=== PATIENT | male | born 1975 | race Caucasian/White ===

== ENCOUNTER 2025-02-22 07:01 | Day surgery (SDC) | payer BC, SELFPAY ==
[2025-02-18 15:23] VITALS: BMI 29.0
--- OUTSIDE RECORDS SUMMARY | 2025-02-21 19:22 | XMS_ITS | Patient Health Record ---
[facility] [place] Address [address] [place] [address] Care Team Providers Care Higher Education Administrator Name Role Phone Jae Cuba MD Primary Care Provider UnaLuther Méndez Unavailable [phone] Allergies Allergen (clinical drug ingredient) Drug/Non Drug Allergy documented on EMR Reaction Allergy Type Onset Date Status Seasonale sinus Drug Allergy Active Reason For Referral No Information Medications Medication SIG (Take, Route, Fr equency, Duration) Notes Start Date End Date Status Simvastatin 20 MG 1 tablet in the even ing Orally Once a day; Duration: 30 day(s) Active Immunizations Vaccine Route Administration Date Status Comme nts Influenza Unknown 03/09/2021 Administered COVID-19 Pfizer BioNTech Vaccine Unknown 05/16/2021 Administered 1st 10/07/2020 2nd 10/28/2020 Social History Tobacco Use: Social History Observation Description Date Details (start date - stop date) Never Smoker NA - NA Tobacco Use/Smoking Question Answer Notes Are you a: nonsmoker Additional Findings: Tobacco Non-User Current no n-smoker Alcohol Screen Question Answer Notes Did you have a drink contain ing alcohol in the past year? Yes How often did you have a dri nk containing alcohol in the past year? 4 or more times a week (4 points) Points 4 Interpretation Positive Tobacco use other than smoking: Question Answer Notes Are you an other tobacco user? No Problems Problem Type SNOMED Code ICD Code Onset Dates Problem Status W/U Status Risk Notes Problem Osteoarthritis of midtarsal joint of left foot (4165602989287173 ) Osteoarthritis of midtarsal joint of left foot (M19.072) Active confirmed Problem Osteoarthritis of midtarsal joint of right foot (2549643599010609 ) Osteoarthritis of midtarsal joint of right foot (M19.071) Active confirmed Vital Signs Height 6ft 5in in 04/06/2024 Weight 230 lbs 04/06/2024 BMI 27.27 kg/m2 04/06/2024 Encounters Encounter Location Date Provider Diagnosis [facility] [address] 04/06/2024 Luther Mcdaniel Pain in left foot M79.672 ; Pain in left ankle and joints of left foot M25.572 ; Osteoarthritis of midtarsal joint of left foot M19.072 ; Pain in right foot M79.671 ; Pain in right ankle and joints of right foot M25.571 ; Osteoarthritis of midtarsal joint of right foot M19.071 ; Acquired pes planovalgus of right foot M21.41 and Acquired pes planovalgus of left foot M21.42 [facility] [address] 04/06/2024 Luther Mcdaniel [address] [address] 07/28/2024 Luther Mcdaniel Assessments Encounter Date Diagnosis (ICD Code) Assessment Notes Treatment Notes Treatment Clinical Notes Section Notes 04/06/2024 Pain in left ankle and joints of left foot (ICD-10 - M25.572) 04/06/2024 Pain in left foot (ICD-10 - M79.672) 04/06/2024 Osteoarthritis of midtarsal joint of left foot (ICD-10 - M19.072) 04/06/2024 Pain in right foot (ICD-10 - M79.671) 04/06/2024 Pain in right ankle and joints of right foot (ICD-10 - M25.571) 04/06/2024 Osteoarthritis of midtarsal joint of right foot (ICD-10 - M19.071) 04/06/2024 Acquired pes planovalgus of right foot (ICD-10 - M21.41) 04/06/2024 Acquired pes planovalgus of left foot (ICD-10 - M21.42) Plan Of Treatment Pending Test Test Name Order Date X ray : Foot, left 3V 04/06/2024 X ray : Foot, right 3V 04/06/2024 Insurance Providers Payer Name Payer Address Payer Phone Subscriber Number Group Number Insured Name Patient Relationship to Insured Coverage Start Date Coverage End Date [facility] [facility] [address] [place] [address] [phone] [id number] Zen Mckenzie Self - patient is the insured Medical (General) History Medical History History ICD Code Cholesterol Gout chronic sinusitis Chicken pox Surgical History Surgery Date(Month/Year) hernia @ age 8
--- OUTSIDE RECORDS SUMMARY | 2025-02-21 19:22 | XMS_ITS | Patient Health Record ---
Author Organization [facility] Address [address] [place] [address] Care Team Providers Care Sinker Puller Name Role Phone LissetteJae kumar Primary Care Provider nAdreea Fowler Jr, Paul Hu Allergies No Known Allergies Reason For Referral No Information Medications Medication SIG (Take, Route, Fr equency, Duration) Notes Start Date End Date Status Simvastatin 20 MG Orally Ac tive Immunizations Vaccine Route Administration Date Status Comme nts Influenza Unknown 02/23/2024 Administered Problems Problem Type SNOMED Code ICD Code Onset Dates Problem Status W/U Status Risk Notes Problem Screening for malignant neoplasm of colon (208271631) Encounter for screening for malignant neoplasm of colon (Z12.11) Active confirmed Problem Pre-procedure evaluation check (613395300) Encounter for other preprocedural examination (Z01.818) Active confirmed Problem Family History of Cancer of Colon (Situation) (213176400) Family history of colon cancer (Z80.0) Active confirmed Vital Signs Temperature 98.0 degrees Fahrenheit 11/10/2024 Blood pressure diastolic 01 mm Hg 11/10/2024 Height 77.5 in 11/10/2024 Blood pressure systolic 001 mm Hg 11/10/2024 Weight 247.8 lbs 11/10/2024 BMI 29 kg/m2 11/10/2024 Encounters Encounter Location Date Provider Diagnosis [facility] [address] [place] [address] 11/10/2024 Paul Fowler Jr Encounter for screening for malignant neoplasm of colon Z12.11 ; Encounter for other preprocedural examination Z01.818 and Family history of colon cancer Z80.0 Assessments Encounter Date Diagnosis (ICD Code) Assessment Notes Treatment Notes Treatment Clinical Notes Section Notes 11/10/2024 Encounter for screening for malignant neoplasm of colon (ICD-10 - Z12.11) We discussed colonoscopy today. We discussed risks and benefits of the procedure today. He understands these and agrees to proceed. This will be scheduled at his convenience. 11/10/2024 Encounter for other preprocedural examination (ICD-10 - Z01.818) We discussed colonoscopy today. We discussed risks and benefits of the procedure today. He understands these and agrees to proceed. This will be scheduled at his convenience. 11/10/2024 Family history of colon cancer (ICD-10 - Z80.0) We discussed colonoscopy today. We discussed risks and benefits of the procedure today. He understands these and agrees to proceed. This will be scheduled at his convenience. Plan Of Treatment Future Test Test Name Order Date COLONOSCOPY 07/20/2014 COLONOSCOPY 11/10/2024 Next Appt Details Provider Name:Paul garcia , 02/22/2025 08:20:00 AM, [address] [place] [address] , [place], [place], [phone], Insurance Providers Payer Name Payer Address Payer Phone Subscriber Number Group Number Insured Name Patient Relationship to Insured Coverage Start Date Coverage End Date [facility] [address] [place] [address] [id number] ODESSA PROCTOR Self - patient is the insured Medical (General) History Medical History History ICD Code Colonoscopy 04/28, history o f tubular adenomas, family history of colon cancer and colon polyps, 5-year follow-up elevated Cholesterol
[2025-02-22 07:24] VITALS: BP 140/87; PULSE 76; RESP 16; TEMP 36.1; O2SAT 96
[2025-02-22] MEDS: Lactated Ringers 1,000 ML 80 ML IVCONT (07:26)
--- NOTE | 2025-02-22 07:38 | HO.ANESPROP2 ---
[facility] Past Medical History Medical History Elevated cholesterol Surgical History Surgical History Hx of colonoscopy (04/2020) History of Problems with Anesthesia: No Social History Social History Are you a primary youth care worker to a significant other at home: No Do you presently have visiting nurse or other home services: No Patient Tobacco Use Status: Never used Tobacco Second Hand Smoke Exposure: No Use of substances other than those prescribed or required for medical reasons: No Have you been hit, kicked, punched, or otherwise hurt by someone within the past year? If so, by whom?: No Are you DNR?: No Advance Directives: No Advance Directives Information Provided: Yes Advance Directives on File: No Poor oral hygiene: No Meds Allergies Allergy/AdvReac Type Severity Reaction Status Date / Time No Known Allergies Allergy Verified 02/18/25 15:23 Active Medications: Current Medications Lactated Ringer's (Lr) 1,000 mls @ 80 mls/hr IVCONT .[id number] ROSEMARY Last Admin: 02/22/25 07:26 Dose: 80 mls/hr Home Medications ?Medication ?Instructions ?Recorded ?Confirmed ?Last Taken ?Type simvastatin 20 mg tablet 20 mg PO DAILY 02/18/25 02/18/25 Unknown History Exam Height,Weight and Vital Signs: Height 6 ft 5.5 in Weight 112.264 kg Last Vital Signs Temp 97.0 F 02/22/25 07:24 Pulse 76 02/22/25 07:24 Resp 16 02/22/25 07:24 BP 140/87 H 02/22/25 07:24 Pulse Ox 96 02/22/25 07:24 O2 Del Method Room Air 02/22/25 07:24 Airway Mallampati Class: III TM Dist: >3cm Neck ROM: Full Loose/Missing/Broken Teeth: No Heart: RRR Lungs: CTA Assessment and Plan Assessment Anesthesia Assessment: Anesthesia Plan Discussed and Chart Reviewed Final Anesthetic Review History of Problems with Anesthesia: No NPO: Yes ASA Class: II Final Preanesthetic Review: Meds/Allgs Chart Reviewed, Consent Obtained/Reviewed and Anes Risks/Benef Reviewed Patient Risk: Low Procedure Risk: Low Anesthetic Plan Anesthetic Plan: MAC: Disposition: Standard PACU
--- NOTE | 2025-02-22 08:18 | MHC.SHP ---
Pre-Procedural Eval Section A - 24 Hr Update-Section A only Date of Service: 02/22/25 Section B - Complete if H&P > 30 days Chief Complaint: screening Details of Present Illness: see H&P no changes Relevant Family History (Specify if Yes): No Relevant Social History: None Present Medications: None Medical History: No relevant PMH Allergies: Allergies Allergy/AdvReac Type Severity Reaction Status Date / Time No Known Allergies Allergy Verified 02/18/25 15:23 Review of Systems Sugical H&P ROS: Negative: Constitution, Cardiovascular, Respiratory, Neurological, Psychiatric, Hem-Onc, Allergic/Immunologic, Gastrointestinal, Genitourinary, Musculoskeletal, Integumentary, Endocrine and Eyes/Ears/Nose/Throat Exam Surgical H&P Exam: Normal: HEENT, Normal: Heart, Normal: Lungs, Normal: Extremities, Normal: Abdomen, Normal: Skin and Normal: Neurological Plan Diagnosis/Plan: Unchanged I have reviewed the history and physical and performed a pertinent physical examination on my patient. No changes have occurred unless specified. Time Spent With Patient Time: Total time managing care of this patient today ____ minutes.
[2025-02-22 09:00] VITALS: BP 116/76; PULSE 81; RESP 16; TEMP 36.1; O2SAT 97
[2025-02-22 09:15] VITALS: BP 112/72; PULSE 82; RESP 18; TEMP 36.6; O2SAT 96
--- NOTE | 2025-02-22 09:22 | OP_ITS ---
DATE OF SERVICE: 02/22/2025 SURGEON: Paul Fowler MD INDICATIONS: Colon cancer screening and prior history of adenomatous colon polyps. PREOPERATIVE DIAGNOSIS: POSTOPERATIVE DIAGNOSIS: PROCEDURE PERFORMED: Colonoscopy to the terminal ileum. ESTIMATED BLOOD LOSS: COMPLICATIONS: ANESTHESIA: Medications, monitored anesthesia care. ASSISTANTS: SPECIMENS: DESCRIPTION OF PROCEDURE: A history and physical were performed. The risks and benefits of the procedure were explained to the patient. Informed consent was obtained. The patient was placed in the left lateral decubitus position. A digital rectal exam was performed and was found to be normal. The Olympus pediatric video colonoscope was introduced into the rectum and advanced to the cecum. The cecum was identified by transillumination, palpation, and identification of the ileocecal valve. Examination was performed. The scope was removed. He tolerated the procedure well and was taken to recovery room in stable condition. FINDINGS: The terminal ileum was examined and appeared normal. Visualized colonic mucosa was normal. The quality of the prep was good. No polyps were identified. Retroflexed examination showed small internal hemorrhoids. IMPRESSION: Normal colonoscopy. RECOMMENDATIONS: 1. Follow up as needed. 2. Repeat colonoscopy is recommended in 5 years because of family history of colon polyps and personal history of colon polyps. MD TAHIR Lerner/MODL / [id number]
== END 2025-02-22 09:40 | disposition home or self-care (01) ==
PROVIDERS: PCP Family Medicine; Visit Provider Internal Medicine Gastroenterology
PROC: 0DJD8ZZ Inspection of Lower Intestinal Tract, Via Natural or Artificial Opening Endoscopic (ICD-10-PCS; CPT 45378; principal; 2025-02-22 08:20)
DX: Z12.11 Encounter for screening for malignant neoplasm of colon (principal); K64.8 Other hemorrhoids; Z86.0101 Personal history of adenomatous and serrated colon polyps; Z83.719 Family history of colon polyps, unspecified; Z80.0 Family history of malignant neoplasm of digestive organs
CPT/HCPCS: 45378; J2704